=== PATIENT | female | born 1980 | race Caucasian/White ===

== ENCOUNTER 2017-10-04 13:06 | Emergency (ER) | payer OTHER ==
[2017-10-04 13:33] VITALS: TEMP 98.4; O2SAT 98
--- NOTE | 2017-10-04 16:07 | ED PDOC ---
HPI: Abdomen Time Seen by Provider: 10/04/17 13:36 Chief Complaint (Nursing): GI Problem History Per: Patient (Pt states chest pain amnd abd pain since being given medication to induce . Pt states she has not eaten and wishes to go home , does not wish to be seen.) Past Medical History Vital Signs: Last Vital Signs Temp 98.4 F 10/04/17 13:27 Pulse 74 10/04/17 13:27 Resp 18 10/04/17 13:27 BP 118/66 10/04/17 13:27 Pulse Ox 98 10/04/17 13:27 - Family History Family History: States: Unknown Family Hx - Allergies Allergies/Adverse Reactions: Allergies Allergy/AdvReac Type Severity Reaction Status Date / Time latex Allergy RASH Verified 10/04/17 13:26 Physical Exam - Physical Exam Appears: Positive for: Non-toxic, No Acute Distress Skin: Positive for: Normal Color, Warm, DRY Neurologic/Psych: Positive for: Alert, Oriented - ECG O2 Sat by Pulse Oximetry: 98 Medical Decision Making Medical Decision Making: Pt wishes to leave against medical advice. Wishes to go home and eat. Explained through mechanical product design engineer risks of leaving before being evaluated including bleeding and . Pt understatnds. Advised to follow up with PMD Disposition - Clinical Impression Clinical Impression: Chest pain, Abdominal pain - Patient ED Disposition Is Patient to be Admitted: No - Disposition Referrals: [facility] [place] [Outside] Disposition: Against Medical Advice Disposition Time: 16:07 Condition: FAIR Instructions: Chest Pain Forms: [place] (Macedonian)
[2017-10-04 16:23] VITALS: BP 107/63; PULSE 68; RESP 14
== END 2017-10-04 16:36 | disposition left against medical advice (07) ==
LOC: H.ER 13:06
DX: R07.89 Other chest pain (principal); R10.9 Unspecified abdominal pain